=== PATIENT | male | born 1955 | race Caucasian/White ===

== ENCOUNTER → 2019-10-06 13:38 | Outpatient (CLI) | payer OTHER, SELFPAY ==
[2019-10-09 06:47] LABS: COVID19 Sendout Not Detected (Not Detect)
== END ==
PROVIDERS: Visit Provider Physician Assistant
DX: Z01.812 Encounter for preprocedural laboratory examination (principal)
CPT/HCPCS: 87635

== ENCOUNTER 2019-10-09 06:24 | Day surgery (SDC) | payer OTHER, SELFPAY ==
--- NOTE | 2019-10-09 | PATH_ITS ---
[facility] Accession Number: [id number] . 01 Material submitted: . PART A: colon - COLON POLYPS AT 80CM PART B: colon - COLON POLYP AT 25CM NEAR ANASTOMOSIS PART C: rectum - RECTAL POLYPS AT 20CM . 01 Clinical history: . A: COLON POLYPS AT 80CM X2 . 02 Diagnosis: A. Colon, Polyps at 80 cm x2, Biopsy: Tubular adenoma. Sessile serrated adenoma. . B. Colon, Polyp at 25 cm Near Anastomosis, Biopsy: Hyperplastic polyp. . C. Rectum, Polyps at 20 cm, Biopsies: Hyperplastic polyp. Benign lymphoid aggregate. V 10/11/2019 1427 Local . 02 Electronically signed: . Brittany Pacheco MD, Pathologist NPI- [id number] . 01 Gross description: . Part A: COLON POLYPS AT 80CM: Received in formalin are 4 fragment(s) of whiting, soft tissue measuring 0.8 x 0.5 x 0.1 cm to 0.2 x 0.2 x 0.1 cm submitted entirely in 1 cassette(s) Part B: COLON POLYP AT 25CM NEAR ANASTOMOSIS: Received in formalin is 1 fragment(s) of whiting, soft tissue measuring 0.3 x 0.2 x 0.2 cm submitted entirely in 1 cassette(s) Part C: RECTAL POLYPS AT 20CM: Received in formalin is 1 fragment(s) of whiting, soft tissue measuring 0.4 x 0.3 x 0.2 cm submitted entirely in 1 cassette(s) /QBJ 10/10/2019 0729 Local . 02 Pathologist provided ICD-10: D12.6 . 02 CPT . 649111, 780782, 052083 Performed at: [address], [place], [place] [id number] MD Todd Haile MD Phone: [phone] Performed at: [address] [id number] MD Brittany Pacheco MD Phone: [phone]
[2019-10-09 07:08] VITALS: BMI 23.9
[2019-10-09 07:13] VITALS: BP 153/86; PULSE 78; RESP 20; TEMP 36.3; O2SAT 99
--- NOTE | 2019-10-09 07:30 | P.HP_ITS ---
History of Present Illness History of Present Illness Date Patient Seen: 10/09/19 Time Patient Seen: 07:30 Chief complaint: [facility] Narrative: 64 yo man with history of colon cancer and colon polyps here for surveillance colonoscopy. He had a partial colectomy in 2011 for colon cancer and did not require any chemotherapy. He has had a colonoscopy every 1-2 years since then. His last scope was in 2018 and nine polyps were found and removed. He denies any melena, hematochezia, unexplained weight loss, or unexplained abdominal pain since then. ROS: Psoriasis for which he takes Humira every 2 weeks, no recent cold symptoms. Thirteen system review is otherwise negative other than as mentioned below and in HPI. PE: GENERAL: Well groomed and cooperative. Appears stated age. Answers questions promptly and appropriately. Vital signs noted. HENT: Normocephalic, atraumatic. Hearing intact. EYES: Conjunctiva pink, sclera white, no periorbital swelling. CARDIOVASCULAR: Regular rate. No pedal edema. RESPIRATORY: Non-tachypneic, breathing comfortably on room air. GASTROINTESTINAL: Abdomen soft and non-distended GENITALURINARY: No flank tenderness. MUSCULOSKELETAL: Equal tone and mass bilaterally. SKIN: Warm, dry, soft, appropriate color for ethnicity. No other lesions, rashes, or wounds. NEURO: Alert and Oriented X 3. No gross sensory deficits, or cognitive issues. PSYCH: Appropriate affect and mood. Patient History Surgical History History of bowel resection Family & Social History Social History: household members spouse Tobacco & Substance use: Tobacco type cigarettes Smoking Status Current every day smoker Smoking packs per day 0.5 alcohol intake current alcohol intake frequency a few times a month Substance Use Type does not use Meds Home Medications and Allergies Home Medications Medication Instructions Recorded Confirmed Type sodium,potassium,mag sulfates 17.5 177 ml PO DAILY #354 ml 10/04/19 10/09/19 Rx gram-3.13 gram-1.6 gram oral soln adalimumab [Humira] See Rx Instructions .ROUTE .COMPLEX 10/09/19 10/09/19 History multivitamin 1 tab PO DAILY 10/09/19 10/09/19 History Allergies Allergy/AdvReac Type Severity Reaction Status Date / Time No Known Drug Allergies Allergy Verified 10/09/19 07:04 Exam Vital Signs (past 8 hours): - 10/09/19 07:13 Temperature 97.4 F L Pulse Rate 78 Respiratory Rate 20 Blood Pressure 153/86 H Pulse Oximetry 99 Oxygen Delivery Method Room Air Assessment & Plan Assessment and plan (1) History of colon cancer in adulthood: Status: Acute (2) Personal history of colonic polyps: Status: Acute (3) Psoriasis: Status: Acute Assessment & Plan narrative: Risks and benefits of screening colonoscopy and possible polypectomy were discussed with the patient including risk of bleeding, perforation, need for additional procedures, risks of anesthesia. The patient desires to proceed with the colonoscopy procedure. COVID-19 COVID-19 status: Negative Result date/Date tested (Pos, Neg/Pending): 10/06/19 Time Spent With Patient Time with patient: 15-24 minutes Quality VTE Deep Vein Thrombosis/Pulmonary Embolism Present on Admission: No
[2019-10-09] MEDS: SODIUM CHLORIDE 0.9% 1,000 ML 200 ML IV (07:32)
[2019-10-09] MEDS: MIDAZOLAM 5 MG/5 ML VIAL IV (07:49)
[2019-10-09] MEDS: fentaNYL 250 MCG/5 ML INJ IV (07:49)
--- NOTE | 2019-10-09 08:17 | P.OP.ENDO_ITS ---
Operative Date/Time/Diagnoses Date of procedure: 10/09/19 Time of procedure: 08:17 Pre-op diagnosis: Personal history of colon cancer, personal history of colon polyps Post-op diagnosis: other (Multiple 2 mm to 5 mm polyps, normal appearing anastomosis) Procedure & Clinicians Study performed: Colonoscopy Cold snare polypectomy at 80 cm Cold forceps polypectomy at 80 cm, polypectomy a 20 cm x 2, and biopsy of pravin stomosis at 25 cm Same procedure as scheduled: Yes Indications: Patient with history of colon cancer and colon polyps Surgeon: Elisa Hutchison Procedure Notes SCOAP/Timeout: Performed Procedure in detail: The patient was brought to the room and placed in left lateral decubitus position with all bony prominences padded. A time-out was performed and then the patient was given procedural sedation starting with [4] mg of Versed and [100] mcg of fentanyl. Vitals were monitored throughout the procedure and remained stable. Once adequately sedated, the procedure was begun. A rectal exam was performed revealing [no abnormalities]. The colonoscope was then introduced to the rectum and advanced to the cecum in the usual fashion. []The cecum was identified by the appendiceal orifice, the mucosal tri-fold, and the ileocecal valve. The scope was then retracted while rotating side to side and examining each mucosal fold. Multiple small polyps were found at 80 cm and it 20 cm and removed with cold snare, and cold forceps. There was a small mucosal hypertrophy at the anastomosis, which was biopsied. The anastomosis was widely patent without any stenosis. [] At the conclusion of the procedure retroflexion was performed and [small grade 1-2 internal hemorrhoids without stigmata of bleeding were seen]. The scope was then withdrawn from the rectum the procedure was concluded. The patient tolerated the procedure well and was transferred to the PACU in stable condition. Scope withdrawal time: 10 Sedation minutes: 26 Findings: polyp Specimen(s): other (Two polyps from 80 cm, 2 polyps from 20 cm, and biopsy of anastomosis site at 8:57 p.m.) Complications: none Impression: Multiple small polyps form since last colonoscopy 2 years ago, normal appearing anastomosis, with a small amount of mucosal hypertrophy Post-procedure Recommendations: Other recommendation (Colonoscopy in 2 years) Follow up: as needed Disposition: PACU
[2019-10-09 08:23] VITALS: BP 130/87; PULSE 86; RESP 16; TEMP 36.4; O2SAT 99
[2019-10-09 08:25] VITALS: BP 134/79; PULSE 80; RESP 20; O2SAT 99
[2019-10-09 08:30] VITALS: BP 123/83; PULSE 74; RESP 12; O2SAT 99
[2019-10-09 08:35] VITALS: BP 136/87; PULSE 74; RESP 14; TEMP 36.7; O2SAT 98
== END 2019-10-09 08:53 | disposition home or self-care (01) ==
PROVIDERS: PCP Family Medicine; Referring Provider Surgery; Visit Provider Surgery
PROC: 0DJD8ZZ Inspection of Lower Intestinal Tract, Via Natural or Artificial Opening Endoscopic (ICD-10-PCS; CPT 45378; principal; 2019-10-09 07:45)
DX: Z12.11 Encounter for screening for malignant neoplasm of colon (principal); Z85.038 Personal history of other malignant neoplasm of large intestine; Z86.010 Personal history of colon polyps; D12.6 Benign neoplasm of colon, unspecified; K64.0 First degree hemorrhoids
CPT/HCPCS: 45385; 45380; 99152; 99153; J2250; J3010

== ENCOUNTER → 2022-02-22 09:16 | Outpatient (CLI) | payer OTHER, SELFPAY ==
[2022-02-22 11:00] LABS: COVID19 -Nasal RAPID Negative (Negative)
== END ==
PROVIDERS: PCP Nurse Practitioner; Visit Provider Surgery
DX: Z01.812 Encounter for preprocedural laboratory examination (principal); Z20.822 Contact with and (suspected) exposure to COVID-19
CPT/HCPCS: 87635; C9803

== ENCOUNTER 2022-02-23 09:28 | Day surgery (SDC) | payer OTHER, SELFPAY ==
--- NOTE | 2022-02-23 | PATH_ITS ---
[facility] Accession Number: [id number] . 01 Material submitted: . colon - ASCENDING COLON POLYP . 01 Diagnosis: Specimen Designated Ascending Colon Polyp, Biopsy: Vegetable matter/food material only. Colonic tissue is not identified. [facility] 02/25/2022 1105 Local . 01 Electronically signed: . Angeline Luque MD, Pathologist NPI- [id number] . 01 Gross description: . ASCENDING COLON POLYP: Received in formalin is 1 fragment(s) of whiting, soft tissue measuring 0.1 x 0.1 x 0.1 cm submitted entirely in 1 cassette(s) /MAYUR 02/24/2022 1933 Local . 01 Pathologist provided ICD-10: Z12.11 . 01 CPT . 911666 Specimen Comment: A courtesy copy of this report has been sent to [phone] Performed at: 01 [facility] [address] [place] [address], [place], [place] [id number] MD Todd Haile MD Phone: [phone]
[2022-02-23] MEDS: LACTATED RINGERS 1,000 ML 200 ML IV (09:59)
[2022-02-23 10:00] VITALS: BP 130/90; PULSE 84; RESP 16; TEMP 36.3; O2SAT 99; BMI 23.7
--- NOTE | 2022-02-23 11:02 | PM.HP.1 ---
History of Present Illness History of Present Illness Date Patient Seen: 02/23/22 Time Patient Seen: 11:02 Chief complaint: Colonoscopy Narrative: 66-year-old man with a history of colon cancer here for surveillance colonoscopy. Unspecified partial colectomy 2011 for adenocarcinoma did not require adjuvant chemotherapy. Last colonoscopy was 2 years ago and demonstrated multiple benign polyps. No abdominal pain unintentional weight loss blood per rectum. Patient History Surgical History History of bowel resection Family & Social History Social History: household members spouse Tobacco & Substance use: Tobacco type cigarettes Smoking Status Current every day smoker Smoking packs per day 0.5 alcohol intake current alcohol intake frequency a few times a month Substance Use Type does not use Meds Home Medications and Allergies Home Medications Medication Instructions Recorded Confirmed Type multivitamin 1 tab PO DAILY 10/09/19 02/23/22 History Allergies Allergy/AdvReac Type Severity Reaction Status Date / Time No Known Drug Allergies Allergy Verified 10/09/19 07:04 Exam Vital Signs (past 8 hours): - 02/23/22 10:00 Temperature 97.4 F L Pulse Rate 84 Respiratory Rate 16 Blood Pressure 130/90 Pulse Oximetry 99 Oxygen Delivery Method Room Air Oxygen Delivery Method Room Air Narrative Exam Narrative: General adult male alert oriented no acute distress Extremities warm well perfused Assessment & Plan Assessment and plan (1) History of colon cancer: Status: Acute Assessment & Plan narrative: 66-year-old man history of colon cancer here for surveillance colonoscopy. Overview of the procedure was discussed patient. Procedural risks including bleeding, missed diagnosis, intestinal perforation were discussed. Questions answered he is in agreement with this plan. Time Spent With Patient Critical Care time: I spent a total of [] minutes of critical care time on this patient's care today; this time is exclusive of procedural time.
--- NOTE | 2022-02-23 11:07 | PM.OP.COLON ---
Operative Date/Time/Diagnoses Date of procedure: 02/23/22 Time of procedure: 11:07 Pre-op diagnosis: History of colon cancer Post-op diagnosis: same Procedure & Clinicians Study performed: Colonoscopy Same procedure as scheduled: Yes Indications: Surveillance Surgeon: Jude Ye Procedure Notes Procedure in detail: The history and physical was performed/updated and the patient is ASA class is 2. The procedure was discussed in detail with the patient. Potential risks complications including infection, bleeding, missed diagnosis, perforation, need for surgery, and were explained. Their questions were answered and informed consent was obtained. Patient was brought to the procedure room and placed standard monitoring equipment. The patient's vital signs were monitored continuously throughout the entire procedure. Prior to starting time-out was performed. The patient was placed in the left lateral recumbent position. Procedural sedation was administered by anesthesia. Examination began with a thorough inspection of the perianal area there was no evidence of fissures, fistulae, external hemorrhoids or cutaneous malignancy. The colonoscopy scope was then placed into the anal canal and was advanced to the cecum, which was identified by the ileocecal valve, the appendiceal orifice and the confluence of the taenia. The scope was then slowly withdrawn examining colon thoroughly in all directions, irrigating it of any residual stool. FINDINGS 1. Anastomosis-without evidence of recurrent disease 2. Ascending colon-5 mm flat polyp removed with cold snare 3. Internal hemorrhoids The patient tolerated the procedure well. They will be discharged once criteria are met. The prep was of good/excellent quality. The withdrawl time was 7 minutes. Specimen(s): other (Ascending colon polyp) Impression: Colonic polyp Post-procedure Recommendations: High fiber diet Plan for aftercare: Follow-up dependent on pathology findings Disposition: same day surgery
[2022-02-23 11:24] VITALS: BP 125/73; PULSE 86; RESP 12; TEMP 36.4; O2SAT 99
[2022-02-23 11:29] VITALS: BP 96/64; PULSE 93; RESP 14; O2SAT 99
[2022-02-23 11:34] VITALS: BP 110/75; PULSE 83; RESP 19; TEMP 36.5; O2SAT 99
[2022-02-23 11:39] VITALS: BP 125/77; PULSE 77; RESP 11; TEMP 36.3; O2SAT 99
[2022-02-23 11:55] VITALS: BP 133/80; PULSE 73; RESP 12; TEMP 36.6; O2SAT 98
== END 2022-02-23 12:05 | disposition home or self-care (01) ==
PROVIDERS: PCP Nurse Practitioner; Referring Provider Surgery; Visit Provider Surgery
PROC: 0DJD8ZZ Inspection of Lower Intestinal Tract, Via Natural or Artificial Opening Endoscopic (ICD-10-PCS; CPT 45378; principal; 2022-02-23 11:00)
DX: Z12.11 Encounter for screening for malignant neoplasm of colon (principal); Z85.038 Personal history of other malignant neoplasm of large intestine; K64.8 Other hemorrhoids
CPT/HCPCS: 45385; J2704; J3010

== ENCOUNTER → 2024-11-21 11:50 | Outpatient (CLI) | payer MEDICARE, OTHER, SELFPAY ==
--- NOTE | 2024-11-21 11:55 | DI.MRI.S_ITS ---
PROCEDURE: MR HEAD/BRAIN WO CON INDICATIONS: Memory Loss TECHNIQUE: Non-contrast axial T1 spin echo, axial T2 fast spin echo, sagittal and axial FLAIR, coronal T2 fast spin echo, axial gradient echo, axial diffusion and ADC through the brain. COMPARISON: None. FINDINGS: Image quality: Excellent. CSF spaces: Ventricles appear symmetric in size and shape. Basal cisterns are patent. No extra-axial fluid collections. Brain: Mild generalized brain parenchymal volume loss is seen. No significant abnormal regional volume loss is seen. Mild scattered chronic small vessel ischemic change can be seen. No intracranial bleeds or mass effects. Brainstem appears normal. Diffusion- weighted images show no acute infarct. No chronic ischemic insults. Normal intravascular flow voids are present. Skull and face: Calvarial bone marrow is normal in signal. Orbits are normal. Sinuses: Mild scattered mucosal thickening can be seen within the paranasal sinuses. No abnormal fluid is seen within the mastoid air cells. IMPRESSION: Mild brain parenchymal volume loss and mild chronic small vessel ischemic change. No findings of acute or subacute infarction can be seen. No prior territorial infarct can be seen. Dictated by: Nick Kong M.D. on 11/21/2024 at 12:34 Approved by: Nick Kong M.D. on 11/21/2024 at 12:36
== END ==
LOC: MRI 11:54
PROVIDERS: PCP Nurse Practitioner Family; Referring Provider Psychiatry & Neurology Neurology; Visit Provider Psychiatry & Neurology Neurology
DX: R41.3 Other amnesia (principal)
CPT/HCPCS: 70551